=== PATIENT | male | born 1950 | race Caucasian/White ===

== ENCOUNTER 2016-04-18 15:45 | Inpatient (IN) | payer MEDICARE ==
[~2016-04-18] VITALS: Ht 182.9 cm; Wt 118.1 kg
[2016-04-18 15:51] VITALS: BP 146/67; PULSE 153; RESP 20; O2SAT 94
--- NOTE | 2016-04-18 16:00 | ED.REPORT ---
HPI-Chest Pain 40 and Over Date of Service Apr 18, 2016 ED Provider: Castro Morales MD Pt is a 65 y/o male w/ a hx of CAD s/p CABG x4 18 years ago, hyperlipidemia, presenting to the ED c/o CP with radiation to the right shoulder and neck onset 04:30 this morning after waking up. He also c/o rapid heart palpitations starting at this same time. He states he has a history of abnormal heart rhythm but his tooth cutter "doesn't seem to think it is a problem". He went into and was emergency sent here. Pt denies any history of a-fib/flutter or SVT. His pain is not worse with exertion. He c/o associated sharp pleuritic right upper chest pain. Pt denies any recent surgeries, long flights, long periods of immobilization. The only medication he takes is for hyperlipidemia. Pt denies SOB, confusion, nausea, vomiting, diaphoresis. Financial Analysis Consultant: Brian Ronquillo Nursing Notes Stated Complaint: CHEST PAIN Chief Complaint: Chest Pain Nursing Notes Reviewed: Yes Allergies: Coded Allergies: amoxicillin (Verified Allergy, Severe, Rash,Itching,, 04/18/16) naproxen (Verified Allergy, Severe, Rash,Itching,, 04/18/16) sulfamethoxazole (Verified Allergy, Severe, Rash,Itching,, 04/18/16) trimethoprim (Verified Allergy, Severe, Rash,Itching,, 04/18/16) Scheduled Aspirin Chew (Aspirin Chew) 81 Mg Chew 81 MG PO DAILY Atorvastatin Calcium (Atorvastatin Calcium) 40 Mg Tablet 40 MG PO HS Esomeprazole Magnesium (Esomeprazole Magnesium) 20 Mg Capsule.dr 20 MG PO QAM Ezetimibe (Zetia) 10 Mg Tablet 10 MG PO HS Lisinopril (Lisinopril) 40 Mg Tablet 40 MG PO HS Magnesium Oxide (Magnesium) 400 Mg Tablet 400 MG PO DAILY Metoprolol Succinate ER (Metoprolol Succinate ER) 50 Mg Tab.er.24h 50 MG PO HS Scheduled PRN Nitroglycerin SL (Nitrostat) 0.4 Mg Tab.subl 0.4 MG SL Q5MIN PRN PRN For Chest Pain General Time Seen by MD: 15:58 Chief Complaint Chest pain Hx Obtained From: Patient, EMS Arrived By: Ambulance Sudden in Onset?: No Onset Occurred: 13 - 16 hours ago Symptom Duration: Since onset Location: : Chest right Quality: Painful Radiation: : Neck: Shoulder right Migration/Movement: Reports: None Severity: Current: Mild Severity: Maximum: Mild Similar Sx Previous: No Past Medical History Past Medical History CAD s/p CABG x4 Hyperlipidemia Past Surgical History CABG x4 age 47 Smoking History Unknown if Ever Smoker Ambulatory Status Independent Review of Systems Constitutional: Denies: Chills, Fever Respiratory: Denies: Non-productive cough, Shortness of breath Cardiovascular: Reports: Chest pain, Palpitations GI: Denies: Abdominal pain, Nausea, Vomiting Neurologic: Denies: Change LOC, Confusion, Headache Complete sys rev & neg: except as marked. Physical Exam Initial Vital Signs Vital Signs (First) Date Time Temp Pulse Resp B/P Pulse Ox O2 Delivery O2 Flow Rate FiO2 04/18/16 15:51 36.9 153 20 146/67 94 Room Air Initial VS: Reviewed, Vital signs abnormal Head / Eyes: Atraumatic, Normocephalic, PERRL Neck: Supple, Full range of motion Extremities: Vascular intact, Neuro intact, No swelling, No tenderness Skin: Warm, Dry, No cyanosis Psychiatric: Mood/affect normal, Behavior normal, Normal thought content General/Constitutional: Awake, Alert, No acute distress, Well appearing, Cooperative, Not toxic appearing Respiratory / Chest: Atraumatic, Breath sounds NL, Breath sounds = bilat, No respiratory distress, No rales, No rhonchi, No wheezing, No retractions, No stridor, No chest tenderness, No chest wall deformity, No crepitus Well healed sternotomy scar Cardiovascular: Regular rhythm, Heart sounds NL, No gallop, No murmurs, No rubs , Cap refill not delayed, Peripheral circulation NL Heart Rate / Rhythm: Positive: Tachycardia Abdomen: Atraumatic, Soft, Non-tender, No guarding, No rebound, No distention Neurologic: Oriented X3, Speech NL, No motor deficits, No sensory deficits ENT: Atraumatic, Airway patent Mouth: Positive: Mucous membranes dry Interpretation & Diagnostics Lab Results Interpretation Result Diagram: 04/18/16 1602 04/18/16 1602 Test 04/18/16 16:02 White Blood Count 16.3th/mm3 (3.8-10.1) Red Blood Count 5.33mil/mm3 (4.40-5.80) Hemoglobin 17.1g/dL (13.8-17.2) Hematocrit 50.6% (41.0-50.0) Mean Corpuscular Volume 94.9fL (81-100) Mean Corpuscular Hemoglobin 32.1pg (27.0-35.0) Mean Corpuscular Hemoglobin Concent 33.8% (32.0-37.0) Red Cell Distribution Width 12.9% (12.3-15.4) Platelet Count 179bil/L (150-400) Neutrophils (%) (Auto) 72.2% (40-74) Lymphocytes (%) (Auto) 16.6% (14-46) Monocytes (%) (Auto) 9.3% (4-12) Eosinophils (%) (Auto) 1.4% (0-5) Basophils (%) (Auto) 0.2% (0-3) Prothrombin Time 10.0sec (8.1-12.5) Prothromb Time International Ratio 0.94ratio Activated Partial Thromboplast Time 26.2sec (22.8-33.0) D-Dimer < 0.50mg/L FEU (<0.50) Sodium Level 139mEq/L (134-144) Potassium Level 4.4mEq/L (3.5-5.2) Chloride Level 100mEq/L (97-108) Carbon Dioxide Level 22mmol/L (18-29) Blood Urea Nitrogen 20mg/dL (8-27) Creatinine 0.87mg/dL (0.76-1.27) Estimat Glomerular Filtration Rate 93mL/min (>59) Glucose Level 196mg/dL (60-99) Calcium Level 9.4mg/dL (8.5-10.1) Magnesium Level 1.9mg/dL (1.6-2.6) Total Bilirubin 0.8mg/dL (0.0-1.2) Aspartate Amino Transf (AST/SGOT) 47U/L (0-50) Alanine Aminotransferase (ALT/SGPT) 62U/L (0-44) Alkaline Phosphatase 84U/L (25-160) Total Protein 7.0g/dL (6.4-8.4) Albumin 4.4g/dL (3.4-5.0) Procalcitonin 0.08ng/mL (0.00-0.08) Thyroid Stimulating Hormone (TSH) 4.680uIU/mL (0.450-4.500) Free Thyroxine 0.98ng/dL (0.82-1.77) ECG Interpretation ECG Interpretation: Sinus tachycardia vs 2:1 atrial flutter rate 154 Normal axis, normal intervals Borderline ST depression leads V2-V3 No acute T wave abnromalities Compared to EKG earlier today at Urgent Care, there are no acute changes present Time: 16:19 Interpreted by: ED physician Normal ECG Interpretation: No acute ischemic changes ECG Interpretation: Cardioverted back to sinus tachy rate 120 with ventricular bigeminy Remains with borderline lateral ST depression Time: 17:17 Interpreted by: ED physician X-Ray Chest Interpretation Chest Xray Interpretation: IMPRESSION: No acute process. Dictated by: Gabriela Alva M.D. on 04/18/2016 at 16:28 Approved by: Gabriela Alva M.D. on 04/18/2016 at 16:28 View: Portable, 1 view Interpretation / Wet Read by: Interpret - Radiologist Procedures Electrical Cardioversion Time: 17:00 Procedure Performed by: ED physician Indication: Atrial flutter Consent / Setup / Site Prep: Informed consent provided, Consent from patient , Time-out performed, Placed on oxygen, Placed on pulse oximeter, Place on diagnostic cardiac sonographer, Hand hygiene observed, Stand sterile technique Procedural Sedation/Analgesia: Sedation: Etomidate (10 mg) Joules: 150 Procedure Successful: Yes Post-Procedure Rhythm: Sinus tachycardia (with bigeminy) Post-Procedure / Complications: No complications, Condition improved, Tolerated procedure well, Patient stable Proced Mod Sedation/Analgesia Time: 17:00 Procedure Performed by: ED physician Sedation Time: 10 - 15 min Consent / Setup: Informed consent provided, Consent from patient, Time-out performed, Hand hygiene observed, Stand sterile technique, Position supine Indication: Other (Cardioversion) Preparation: laboratory monitor applied, Pulse oximeter applied, Constant attendance, IV access established, Eval last meal time, Supplemental oxygen, Procedure explained, Suction available, End tidal CO2 mon applied VS Prior to Procedure: O2 saturation normal, Blood pressure normal, Respiratory rate normal Mallampati: Class & Anatomy: 2 top tonsil/uvula/palate Airway Exam: Normal facial anatomy, Normal neck anatomy, Normal anatomy CVS/Resp Exam: Normal breath sounds, Normal heart sounds Neuro Exam: Alert, No acute distress Sedation: Sedation: Etomidate (10 mg) ASA Classification: 2 mild systemic disease Response During Procedure: Handled secretions adeq, Maintained airway well, Oxygenation stable, Sedation appropriate, Vital signs stable Complications During/After: None Reversal: None required Mental Status After Procedure: Alert, Oriented X3, At patient's baseline Post-Procedure: Pt rtn pre-proc baseline Attestation: I performed procedure, I performed sedation Re-Eval/Medical Decision Med Decision/Clinical Course Pt is a 65 y/o male w/ a hx of CAD s/p CABG x4 18 years ago, hyperlipidemia, presenting to the ED c/o CP with radiation to the right shoulder and neck onset 04:30 this morning after waking up. He also c/o rapid heart palpitations starting at this same time. Upon arrival patient tachycardic with a heart rate of 153 though otherwise hemodynamically stable. Aspirin given prior to arrival. EKG was obtained and interpreted by myself as documented above. Consistent with 2-1 atrial flutter pattern. EKG reviewed with cardiology and they agreed. Given active chest pain likely reflective of demand ischemia in setting of rapid heart rate they recommended we proceed with electrical cardioversion given onset of symptoms less than 12 hours. Consent was obtained and the patient underwent procedural sedation using 10 mg of etomidate as documented above. He underwent synchronized cardioversion at 150 J and thereafter was found to be in sinus rhythm with occasional beats of bigeminy. After conversion to sinus rhythm patient reported complete resolution of his chest pain. He remained hemodynamically stable. Labs notable as below: CBC notable leukocytosis of 16 otherwise unremarkable CMP: unremarkable Troponin: negative D-dimer: negative Aspects of the patient's presentation were somewhat suggestive of pulmonary embolism though overall clinical picture seems less consistent with this etiology. D-dimer was negative and reassuring against PE. After discussing with cardiology we will admit the patient for further rhythm management as well as ACS rule out given the presence of chest pain in setting of multiple cardiac risk factors. Patient was discussed with the admitting team and transferred in stable condition to the CCU in consultation with cardiology. Time of Eval: 17:56 Patient Status: Condition improved, Moderate relief, Pain improved Re-Evaluation/Progress Note: Pt rechecked. Pt informed of need for admission. Pt understands and agrees with plan for admission. All questions addressed. Consultation #1: Referral / Consult Name: Juan Seymour MD Consulted With: Cardiology Call Returned at: 16:25 Head Of Global Strategic Partnerships: Agrees with eval, Agrees with plan Note: Believes the rhythm is atrial flutter and recommends cardioversion Consultation #2: Referral / Consult Name: Pastor Walters MD Consulted With: Hospitalist Call Returned at: 16:59 Head Of Global Strategic Partnerships: Will see patient, Agrees with eval, Agrees with plan, Accepts admit Counseled Regarding: Diagnosis, Lab results Discharge & Departure Primary Impression: Chest pain Chest pain type: unspecified Qualified Code: R07.9 - Chest pain, unspecified Additional Impressions: Atrial flutter with rapid ventricular response Demand ischemia of myocardium Leukocytosis Leukocytosis type: unspecified Qualified Code: D72.829 - Elevated white blood cell count, unspecified History of coronary artery disease History of coronary artery bypass graft x 2 Disposition: ADMITTED TO HOSPITAL Discharge Condition All VS Reviewed: Yes Condition: Stable Crit Care Except Billable Proc Time Spent: 135-164 minutes Services Performed: Patient management by me, Time spent at bedside, Reviewing test results, Reviewing imaging, Discussing patient care, Documentation in record, Time with fam/surrogate Scribe Attestation Portions of this note were transcribed by Prashant Hugo. I, Dr. Morales personally performed the history, physical exam and medical decision-making; I reviewed and confirmed the accuracy of the information in the transcribed note. Signed by Maria Luisa Grossman, 04/18/16 - 1700 Castro Morales MD Apr 18, 2016 16:00 PRASHANT HUGO Apr 18, 2016 16:10
[2016-04-18 16:06] LABS: BASOPHILS % (AUTO) 0.2 % (0-3); EOSINOPHILS % (AUTO) 1.4 % (0-5); MONOCYTES % (AUTO) 9.3 % (4-12); Mean Corpuscular Hemoglobin 32.1 pg (27.0-35.0); Mean Corpuscular Volume 94.9 fL (81-100); NEUTROPHILS % (AUTO) 72.2 % (40-74); Platelet Count 179 bil/L (150-400)
[2016-04-18 16:15] VITALS: BP 118/69; PULSE 155; RESP 22; O2SAT 95
[2016-04-18] MEDS ORDERED: Adenosine 3 mg/mL 2 mL Inj IVPUSH ONE ×2 (16:15)
[2016-04-18 16:27] LABS: INR 0.94 ratio
--- NOTE | 2016-04-18 16:29 | DRSVH ---
PROCEDURE: X-RAY CHEST ONE VIEW, PORTABLE ([id number]) INDICATIONS: CHEST PAIN TECHNIQUE: One view of the chest was acquired. COMPARISON: None. FINDINGS: Surgical changes and devices: Median sternotomy. Lungs and pleura: No pleural effusions or pneumothorax. Lungs are clear. Mediastinum: Mediastinal contours appear normal. Heart size is normal. Bones and chest wall: No suspicious bony lesions. Overlying soft tissues appear unremarkable. IMPRESSION: No acute process. Dictated by: Gabriela Alva M.D. on 04/18/2016 at 16:28 Approved by: Gabriela Alva M.D. on 04/18/2016 at 16:28
[2016-04-18 16:36] LABS: D-Dimer < 0.50 mg/L FEU (<0.50)
[2016-04-18 16:39] LABS: TROPONIN T < 0.010 ug/L (0.0-0.011)
[2016-04-18 16:41] LABS: Magnesium 1.9 mg/dL (1.6-2.6)
[2016-04-18] MEDS ORDERED: Ondansetron 2 mg/mL 2 mL Inj IVPUSH PRN (16:45)
[2016-04-18] MEDS ORDERED: Alum-Mag Hydrox-Simeth 30 mL Suspension PO PRN (16:45)
[2016-04-18] MEDS ORDERED: Etomidate 2 mg/mL 20 mL Inj IV ONE (16:50)
[2016-04-18 17:48] VITALS: BP 115/68; PULSE 115
[2016-04-18] MEDS ORDERED: Senna-Docusate 8.6-50 mg Tablet PO PRN (17:50)
[2016-04-18] MEDS ORDERED: Polyethylene Glycol (PEG) 17 Gm Powder PO PRN (17:50)
[2016-04-18] MEDS ORDERED: Atropine 1 mg/10 mL (Code) Syringe IVPUSH PRN (17:50)
[2016-04-18] MEDS ORDERED: MeTOProlol 1 mg/mL 5 mL Inj IVPUSH ONE (17:55)
[2016-04-18] MEDS ORDERED: LISI40TA PO (17:57)
[2016-04-18] MEDS ORDERED: EZET10TA PO (17:57)
[2016-04-18] MEDS ORDERED: NITR0.4T SL (17:57)
[2016-04-18] MEDS ORDERED: ATOR40TA69 PO (17:57)
[2016-04-18] MEDS ORDERED: METO-272 PO (17:57)
[2016-04-18] MEDS ORDERED: Glucose 40% Oral Gel 15 Gm Tube PO PRN (18:00)
--- NOTE | 2016-04-18 18:09 | PCM.HPMED ---
Subjective Date of Service Apr 18, 2016 Primary Provider: Admitting Physician: Primary Care Physician: Jacob Attending Physician: Chief Complaint: CP History of Present Illness: Mr Rogers, who goes by Stewart, is a 65 yo M with history of CAD s/p distant CABGx4 , Hypertension, and Hyperlipidemia who presented to the ED for complaints of right sided chest pain that radiates to his right neck. Stewart reports that the pain woke him up this morning around 0430. The pain felt like a muscle tore and was constant throughout the day despite taking a pain pill and did not change with exertion. He also noted some palpitations and pain with deep inhalation, but denies any N/V, Diaphoresis, rigors, SOB, LYON, vision changes, or sense of impending doom. He reports he was at baseline prior to today, and had not had any CP since his CABG 18 years ago. He was worried and went to this morning and was subsequently transferred to the ED for further evaluation. He reports he has been dealing with URI symptoms this past month, but has not had any fevers, leg swelling, or MEADOWS. Denies any sick contacts, recent surgeries, or travels. In the ED, he was noted be tachycardic in the 150s with an EKG that was read as Atrial Flutter with no acute change ST changes. Troponin neg x1, and CXR was benign. He was also noted to have a WBC of 16.3, although diff of 72.2% neutrophils. The ED physician did cardiovert the patient and his rhythm converted to a slower rhythm with rate in the 110s and appears to be Trigeminy. Patient reports that his CP improved after the cardioversion. His Back Tender Paper Machine is Jesus Dawkins at [facility]. He just recently moved to the [facility]. He states he has been compliant on his medications but his diet could be better. His past away in December, so he has just been living alone. He reports he only drinks 1 regular sized cocktail each night. He used to smoke 1 ppd x about 25 years. He quit after his CABG. Review of Systems: 12 Point ROS negative except as stated in HPI Allergies Coded Allergies: amoxicillin (Verified Allergy, Severe, Rash,Itching,, 04/18/16) naproxen (Verified Allergy, Severe, Rash,Itching,, 04/18/16) sulfamethoxazole (Verified Allergy, Severe, Rash,Itching,, 04/18/16) trimethoprim (Verified Allergy, Severe, Rash,Itching,, 04/18/16) PMH CAD s/p CABG x4 Hyperlipidemia Hypertension Pre-diabetes Surgical History CABG Family History Reports Father of OR at 72 Mother had CVA Social History Hx Alcohol Use: Yes Hx Substance Use: No Hx Tobacco Use: Yes Smoking Status: Former Smoker Living Arrangement: Alone Additional Information He just recently moved to the [facility]. He states he has been compliant on his medications but his diet could be better. His past away in December, so he has just been living alone. He reports he only drinks 1 regular sized cocktail each night. He used to smoke 1 ppd x about 25 years. He quit after his CABG. Exam Vital Signs Vital Sign - Last Date Time Temp Pulse Resp B/P Pulse Ox O2 Delivery O2 Flow Rate FiO2 04/18/16 17:48 115 115/68 04/18/16 16:15 22 95 Room Air 04/18/16 15:51 36.9 Exam Gen: Obese white male in NAD, A&Ox3, Cooperative HEENT: NC/AT, PERRLA, EOMI, Oropharynx non-erythematous, mucosa pink but mildly dry Neck: Soft, Trachea Midline, no lymphadenopathy appreciated CV: Tachycardic with frequent PVCs, peripheral pulses bounding but equal, No JVD noted Resp: CTAB, normal resp effort Abd: Soft, Obese, mildly distended, mildly tender to palpation in the lower quadrants, no guarding or rebound, no masses palpated. Normoactive BS present MSK: MS grossly intact and equal, no focal weakness Neuro: CN2-12 grossly intact, DTRs +2 and equal, Gait not tested, Skin: Warm, Dry, Intact, no Rashes noted Extremities: No clubbing, Cyanosis, or edema noted. Psych: Appropriate mood and affect, linear speech process. Lab and Diagnostics Result Diagram: 04/18/16 1602 04/18/16 1602 X-Rays, CTs and MRIs PROCEDURE: X-RAY CHEST ONE VIEW, PORTABLE ([id number]) IMPRESSION: No acute process. Assessment & Plan 65 yo M with history of CAD s/p distant CABGx4, Hypertension, and Hyperlipidemia who presents for right sided CP radiating to his right neck. Found to be in Atrial Flutter with rate of 150s in ED, then cardioverted and came down to rate of 110s with frequent Trigeminy vs Bigeminy. #Acute Chest Pain, POA Likely due to his Atrial Flutter, improved after Cardioversion, but still mildly persistent. Trops neg x1, EKG without obvious acute ST changes Dr. Juan Seymour, spiritual counselor is consulted on the patient. Will give 1 dose of Metoprolol for this afternoon, then hold BB and place on NPO status for anticipated ECHO and ETT tomorrow. Placed on Tele for CV monitoring. TSH/T4 pending IV NS 80mls/hr while NPO. #CAD s/p CABG, POA Lipid panel in the AM Continue Home medications when appropriate: Lisinopril and Metoprolol #Leukocytosis, acute, POA WBC of 16.3 on admit with normal diff. Patient afebrile and lung exam was benign , although patient reports having a URI recently. Possibly stress reaction, continue to monitor. Procalcitonin pending. #Hypertension, POA Continue Home medications when appropriate: Lisinopril and Metoprolol #Hyperlipidemia, POA Patient already on high intensity statin Continue Atorvastatin when appropriate #Pre-diabetes, POA Patient reports history of pre-diabetes Will check HgbA1c for evaluation Insulin Lispro Low Correctional Scale initiated #GERD, POA Secondary to report of hiatal hernia Maalox prn heartburn #BMI 34.0 Recommend plant health manager consult Tylenol PRN pain Restoril PRN insomnia Zofran PRN n/v Pain Evaluation: Adequate Pain Control VTE Prophylaxis: Sub-Q Heparin (Unfractionated) Resuscitation Status: CPR: Attempt Resuscitation Time spent 55 minutes Attending Statement I have seen and evaluated patient at bedside in addition to directly supervising care provided by resident physician. I agree with above documentation. In the setting of recent arrhythmia/Flutter, heperin drip was initiated over night to reduce risk for development of embolism during recovering period when hyperdynamic cardiac motion may still put pt at increased risk of carcinogenic thrombus formation. Maury Jack DO Apr 18, 2016 18:09 Milton Peña DO Apr 19, 2016 08:09
[2016-04-18 18:42] VITALS: BP 161/125; PULSE 108; RESP 18; O2SAT 93
--- NOTE | 2016-04-18 18:42 | NUR ---
arrived to unit patient arrived to floor. VS: BP 161/25, HR 108 with lots of PVCs per tele, Spo2 93% on RA. hitch technician at bedside doing med rec. Pt stated that he had no pain. Alert and oriented X3. Pt is NPO and voided X1.
[2016-04-18 18:48] VITALS: PULSE 109
[2016-04-18] MEDS ORDERED: MAGN400T39 PO (18:59)
[2016-04-18] MEDS ORDERED: ASPI81TA3 PO (18:59)
[2016-04-18] MEDS ORDERED: ESOM20CA39 PO (18:59)
[2016-04-18] MEDS ORDERED: Heparin 25K Unit/500mL 0.45 NS 25,000 UNIT in IV Premix 1 EACH IV SCH (19:25)
[2016-04-18] MEDS: 0.9% Sodium Chloride 1,000 ML IV SCH (20:16)
[2016-04-18] MEDS: Insulin LISPRO 300 Unit/3 mL Inj SUBQ SCH (22:00)
[2016-04-18] MEDS: Sodium Chloride LOK Flush 10 mL Syringe IVFLUSH SCH (23:54)
[2016-04-19 00:26] VITALS: BP 127/82; PULSE 94; RESP 18; O2SAT 96
[2016-04-19] MEDS ORDERED: Heparin 5,000 Unit/mL Inj SUBQ SCH (00:30)
[2016-04-19] MEDS ORDERED: Heparin 5,000 Unit/mL Inj IVPUSH ONE (02:30)
[2016-04-19] MEDS ORDERED: Heparin Protocol Boluses IVPUSH PRN (02:40)
[2016-04-19 05:43] VITALS: PULSE 86
--- NOTE | 2016-04-19 06:40 | NUR ---
Anxiety / Insomnia Not able to fall asleep and rated anxiety mild with 3/10 chest pain. Patient opted to try 0.5mg Ativan before Morphine and slept soundly the remainder of the night.
[2016-04-19 07:20] LABS: BASOPHILS % (AUTO) 0.4 % (0-3); EOSINOPHILS % (AUTO) 2.1 % (0-5); MONOCYTES % (AUTO) 11.9 % (4-12); Mean Corpuscular Hemoglobin 32.4 pg (27.0-35.0); Mean Corpuscular Volume 96.2 fL (81-100); NEUTROPHILS % (AUTO) 50.8 % (40-74); Platelet Count 125 bil/L (150-400)
[2016-04-19] MEDS: Sodium Chloride LOK Flush 10 mL Syringe IVFLUSH SCH (07:35)
[2016-04-19] MEDS: Insulin LISPRO 300 Unit/3 mL Inj SUBQ SCH ×2 (07:37→12:00)
[2016-04-19] MEDS: 0.9% Sodium Chloride 1,000 ML IV SCH (07:40)
[2016-04-19 07:46] LABS: Magnesium 2.1 mg/dL (1.6-2.6)
[2016-04-19 08:00] VITALS: PULSE 87
--- NOTE | 2016-04-19 08:40 | NUR ---
Stopped heparin drip 0840 PTT of 35.8 came in. Pt had 0900 stress test. RBVO from Dr Jack to saline lock patient for test. Stopped drip and did not bolus or adjust rate.
--- NOTE | 2016-04-19 09:00 | NUR ---
off unit pt off unit for stress test. stopped heparin drip and iv fluids per Dr Jack. pt left displaying no s/s of distress Addendum: 04/19/16 at 1146 by VAL NAVARRETE RN pt bact to unit.
--- NOTE | 2016-04-19 11:30 | NUR ---
re-started heparin drip Re-started heparin drip per Dr Jack orders at the same rate of 1200units/hr and set up the next 24hrs of PTTs.
--- NOTE | 2016-04-19 11:59 | DRSVH ---
PROCEDURE: 1 DAY TREADMILL STRESS TEST Rest and exercise myocardial perfusion SPECT with gated imaging and ejection fraction RADIOPHARMACEUTICAL: 10.6 mCi Tc-99m tetrafosmin IV at rest and 29.1 mCi Tc-99m tetrafosmin IV at pea k exercise. [id number] was performed. INDICATIONS: 65-year-old man with chest pain. Patient has coronary artery disease with history of co ronary artery bypass grafting. Evaluate myocardial ischemia. TECHNIQUE: Radiopharmaceutical was injected at peak stress test, and also at rest. SPECT images wer e obtained. SPECT myocardial perfusion images were displayed in short axis, horizontal long axis, an d vertical long axis views. Gated images were reviewed using Compario software. COMPARISON: , CR, XR CHEST 1VW (PORTABLE), 04/18/2016, 16:06. CARDIAC STRESS: A standard Rafael treadmill exercise tolerance test was performed by the patient under the supervision of an attending staff. The patient exercised for 3 minutes and 37 seconds; functional aerobic impai rment (ROLY) is +47 %. Hemodynamic data: There is normal blood pressure and heart rate response to exercise stress. Patien t achieved 97% of maximum predicted heart rate at peak exercise. Symptoms: Patient had moderate chest pressure (3/10) at peak exercise, which resolved spontaneously 2 minutes into recovery. EK-[address] depression in II, III, aVF, V5-V6 diagnostic EKG changes of ischemia; frequent PVCs. FINDINGS: Raw data: There is good myocardial labeling by radiotracer. No significant motion artifacts. Left ventricle function: Gated images demonstrate normal left ventricle wall thickening. There is mi ld global hypokinesia. Septal rocking cachectic related to CABG. No transient ischemic dilation. Th e left ventricle resting end-diastolic volume is mildly enlarged. Left ventricle stress ejection fra ction is 38%; normal values are above 45%. Myocardial perfusion: There is a small, mild, fixed perfusion defect in the left ventricular apex, w hich is most likely caused by apical thinning. There is no reversible perfusion defect to suggest anu cardial ischemia. IMPRESSION: 1. Probably normal myocardial perfusion images. A small, mild, fixed perfusion defect in the left shahida tricular apex is most likely caused by apical thinning. There is no reversible perfusion defect to simpson ggest myocardial ischemia. 2. Mild left ventricular enlargement with mild global hypokinesia. Decreased systolic function (LVEF 38%). 3. Severely reduced exercise capacity. The patient expressed chest pain at peak exercise, which was r esolved 2 minutes into recovery. There were diagnostic EKG changes suggesting myocardial ischemia. PQRS ATTESTATIONS: Measure 322 - Is this imaging test primarily performed on a low-risk surgery patient for preoperative evaluation within 30 days preceding their low-risk non-cardiac surgery? Low-risk surgery is defined as cardiac or myocardial infarction less than 1%, including (but not limited to) endoscopic pr ocedures, superficial procedures, cataract surgery, and excisional breast surgery: Answer: No Measure 323 - Is this imaging test performed primarily for the monitoring of an asymptomatic patient who had percutaneous coronary intervention on the visit date or within 2 years of the visit date? An swer: No Measure 324 - Is this imaging test performed primarily for the initial detection and risk assessment on an asymptomatic, low coronary heart disease patient? Low CHD risk definition = clinicians should consider the maximum number of available patient factors used to estimate risk based on [place] (A TP III criteria), typically age, gender, diabetes, smoking status, and use of blood pressure medicati on, and integrate age appropriate estimates for missing elements, such as LDL or standard blood press ure. Answer: No Dictated by: Billy Morel M.D. on 04/19/2016 at 11:23 Approved by: Billy Morel M.D. on 04/19/2016 at 11:57
--- NOTE | 2016-04-19 13:11 | DRSVH ---
[facility] [address] [place] [address] Echocardiogram Report Name: KELIN KENNYudy Date : 04/19/2016 Height: 72 in Hospital Exam Location: [facility] Weight: 260 lb Gender: Male BSA: 2.4 m2 : 1950 Age: 65 yrs BP: 127/82 m mHg Reason For Study: Chest pain History: CABG Ordering Physician: HOSPITALIST [facility] Performed By: Marilin Swan Referring Physician: Dr. Jesus Dawkins Interpretation Summary Left ventricular systolic function is low normal. There is basal inferior wall severe hypokinesis. The ejection fraction is estimated to be 50-55%. Assessment of diastolic parameters indicates normal left ventricular diastolic function and normal filling pressures. No other echocardiographic abnormalities seen. Procedure: A two-dimensional transthoracic echocardiogram with color flow and Doppler was performed. The study quality was technically adequate. There is no prior echocardiogram noted for this patient. A contrast injection of Definity was performed to improve assessment of LV function. The patient did well with Definity. The patient had occasional PVCs during the exam. The patient was in normal sinus rhythm during the exam. Left Ventricle: The left ventricle is borderline dilated. Left ventricular wall thickness is at the upper limits of normal. The ejection fraction is estimated to be 50-55%. Left ventricular systolic function is low normal. There is basal inferior wall severe hypokinesis. Assessment of diastolic parameters indicates normal left ventricular diastolic function and normal filling pressures. Right Ventricle: The right ventricle is normal in size and function. Atria: The left atrium is mildly dilated. Right atrial size is normal. There is no Doppler evidence for an interatrial shunt. Mitral Valve: The mitral valve is normal in structure and function. There is trace mitral regurgitation. Aortic Valve: The aortic valve is trileaflet. The aortic valve opens well. The aortic valve is slightly calcified. There is trace aortic regurgitation. Tricuspid Valve: The tricuspid valve is not well visualized, but is grossly normal. Pulmonary artery pressures cannot be estimated because of the lack of a measurable TR jet velocity. Pulmonic Valve: The pulmonic valve is not well visualized. There is trace pulmonic regurgitation. Great Vessels: The aortic root is normal size. The ascending aorta is normal in size. The aortic arch is normal in size. The inferior vena cava was not visualized. Pericardium/ Pleura There is no pericardial effusion. MMode/2D Measurements & Calculations LVIDd: 6.2 cm LA dimension: 4.1 cm RA long axis LVOT diam: 2.7 cm LVIDs: 4.8 cm AoV Opening FS: 21.4 % LA A2 area: 24.6 cm RA area EPSS: 0.82 cm LA A4 area: 30.1 cm Ao root diam IVSd: 1.2 cm LA length (vol) : 18.1 cm LVPWd: 1.0 cm RA vol asc Aorta Diam LA vol: 98.4 ml : 48.6 ml LA vol index RA Ao Arch Diam (Prox : 20.4 mm2 Trans): 2.8 cm : 41.3 ml/m2 LV shelley. diameter/BSA LV sys. diameter/BSA RVD1 (basal) TAPSE: 2.3 cm (cm/m^2): 2.6 (cm/m^2): 2.0 Doppler Measurements & Calculations Ao V2 max MV E max denilson MV E/A: 1.1 PA V2 max : 147.5 cm/sec : 84.5 cm/sec Med Peak E' Denilson : 76.7 cm/sec Ao max PG MV A max denilson PA mean PG : 8.7 mmHg : 76.9 cm/sec E/E' med: 12.8 Ao mean PG MV P1/2t: 48.2 msec Lat Peak E' Denilson PA Accel Time : 0.11 sec LVOT Max Denilson E/E' lat: 7.7 : 72.1 cm/sec E/e' average: 10.2 Pulm A Revs Dur JACKIE(I,D): 2.8 cm sev ratio MV A dur: 0.09 sec MV dec time MV P1/2t max denilson Ao V2 mean LV V1 max PG : 0.16 sec : 109.6 cm/sec MVA(P1/2t): 4.6 cm2 Ao V2 VTI: 30.0 cm LV V1 VTI JACKIE(V,D): 2.7 cm2 : 15.2 cm PA V2 mean JACKIE indexed to BSA Pulm A Revs Dur - MV A : 55.1 cm/sec (cm^2/m^2): 1.2 Dur: 0.03 msec Reading Physician:01:10 PM
[2016-04-19 14:05] VITALS: BP 158/98; PULSE 64; RESP 19; O2SAT 91
--- NOTE | 2016-04-19 15:05 | PCM.DIMED ---
Maury Jack DO 04/19/16 1505: Discharge Instructions Date of Service Apr 19, 2016 Dates of Hospitalization Apr 18, 2016 at 18:15 Discharge Diagnosis Discharge Diagnosis #Acute Chest Pain Secondary to Atrial Flutter #CAD s/p CABG #Leukocytosis, resolved #Hypertension #Hyperlipidemia #Diabetes Mellitus Type 2 #GERD #BMI 34.0 Medication Instructions Please take your medications as instructed. We will start you on a blood thinner called Xarelto. Please take that daily as instructed. Diet Heart Healthy Activity Limited until seen by PCP (Take it easy) Call your provider Shortness of breath, Chest pain, Vomitting, Weakness (unilateral) Patient Instructions Please take your medications as instructed. Please follow up with Dr. Cooper [facility], 2016 at 10:00 AM. Please arrive 10 minutes early to fill out paperwork. Address: [address] [place] [id number] Please follow up with your Exhaust Equipment Operator within 1-2 weeks also. Follow-up Provider: Maury Jack DO Follow-up with PCP in: 2 weeks Milton Peña DO 04/20/16 1535: Discharge Instructions Attending's Statement Read and agree Maury Jack DO Apr 19, 2016 15:05 Milton Peña DO Apr 20, 2016 15:35
[2016-04-19] MEDS ORDERED: METO-272 PO (15:08)
[2016-04-19] MEDS ORDERED: RIVA20TA PO (15:08)
[2016-04-19] MEDS ORDERED: MeTOProlol XL 50 mg ER24 Tablet PO ONE (15:10)
--- NOTE | 2016-04-19 15:23 | CONS ---
[address] [address] CONSULTATION REPORT PATIENT: KELIN KENNY : 1950 MR#: [id number] ADMIT: 04/18/2016 JOB ID: [id number] DATE OF SERVICE: 04/19/2016 CARDIOLOGY CONSULTATION: I have been asked by the hospitalist to see the patient who presented early yesterday morning with atrial flutter and right precordial and right shoulder chest discomfort in the setting of known ischemic heart disease. The patient moved to this area in November to be closer to family since his earlier last year from cancer. He has a history of coronary artery disease dating back 18 years ago when he presented presumably with an acute coronary syndrome, possible inferior myocardial infarction and ultimately ended up with coronary bypass grafting. He has been followed on a regular basis by Dr. Jesus Dawkins at [facility]. He states that he undergoes a fairly complete yearly or every other year evaluation including coronary angiography within the recent couple of years which demonstrated no significant problems and he believes that he had a stress test last year which was unremarkable. He admits to symptoms of mild chronic exertional dyspnea when walking the dog but does not have a history of clear-cut exertional anginal chest discomfort. At about 2 or 3 in the morning on April 18, he woke up with symptoms of right precordial and right shoulder and neck discomfort. His emergency department physician note suggested that he felt rapid heart palpitations at that time, but the patient states that he was unaware of his rapid heart rate on my examination today. In any event, because of his discomfort and history of bypass surgery, he was given sedation and underwent a cardioversion in the emergency department. He states that he does not have a known past history of known atrial fibrillation or flutter though he has had an irregular heart beat for a long time. Following admission, this gentleman continued to have a moderate sinus bradycardia and moderate hypertension and frequent PVCs which I suspect are chronic. Today he underwent testing with an echocardiogram and a nuclear cardiac stress study. His echocardiogram shows an ejection fraction in the range of 50%-55% with a focal area of inferior and inferior septal akinesis likely related to a remote infarction but no other regional wall motion abnormalities are seen and there is no significant valvular heart disease. No significant tricuspid regurgitation noted with which to estimate pulmonary artery pressures but the right ventricle looked normal. This gentleman underwent a nuclear cardiac stress study. His exercise capacity was markedly reduced. He had a rapid heart rate response to exercise. His blood pressure increased by about 20 points but he had to stop at about 3.5 minutes due to tachycardia, ST-segment depression and symptoms of substernal precordial chest tightness more in the epigastric region and different than his right shoulder discomfort that he presented with with atrial flutter. EKG changes gradually improved. His baseline EKG shows some mild nonspecific ST-segment abnormalities and borderline ventricular hypertrophy, which is also identified on his echocardiogram and, therefore, the EKG changes are not likely to be as specific. His nuclear stress study suggests a basal inferior hypoperfusion consistent with a previous infarction but no area of reversible perfusion abnormality that would suggest ischemia and his serial cardiac enzymes have been normal. He is currently with family and resting comfortably without any symptoms. REVIEW OF SYMPTOMS: Is notable for frequent nocturia every two hours or so. He does not describe a history of significant daytime fatigue or hypersomnolence although he has been tested in the past for sleep apnea, and was given a CPAP machine which he has not used for a number of years because he would get tangled up in the hose. He denies a history of stroke or stroke-like symptoms and has no history of claudication. He denies any bleeding issues or problems. His review of systems is otherwise unremarkable. HOME MEDICATIONS: Include: 1. Aspirin 81 mg a day. 2. Atorvastatin 40 mg a day plus Zetia 10 mg a day. 3. He takes lisinopril 40 mg a day. 4. Metoprolol succinate 50 mg daily in addition to magnesium and a proton pump inhibitor for reflux. ALLERGIES: Include AMOXICILLIN, NAPROXEN, SULFAMETHOXAZOLE and TRIMETHOPRIM. SOCIAL HISTORY: As noted above. The patient is a nonsmoker. He does not eat very well and has not been exercising much with his recent move and with the passing of his . PHYSICAL EXAMINATION: Shows a pleasant 65-year-old gentleman who is 6 feet tall and weighs 260 pounds, body mass index of 35.3. Heart rates have generally been ranging in the 80s since late last night and early this morning. Blood pressures have been variable. Blood pressure this afternoon is up some at 158/98. He has been afebrile with normal room air O2 saturation. Clinical examination is pleasant, alert, oriented, obese male resting comfortably in bed. HEENT examination is unremarkable. Jugular venous pressure is noted to be elevated at the mid neck at about 45 degrees. No carotid bruits identified. Lung agarwal are clear. Cardiac auscultation is notable for regular rate and rhythm with occasional to frequent PVCs noted. He has a somewhat widely split second heart sound which is physiologic. I do not hear a ventricular gallop nor do I hear a murmur. Abdomen is morbidly obese without any obvious findings. Distal extremities are warm and well perfused with normal pedal pulses. No significant lower extremity edema. No musculoskeletal or neurologic findings identified. LABORATORY: Is notable for a hemoglobin A1c of 6.9 and blood sugar of 145. His creatinine and electrolytes are normal. Total bilirubin slightly elevated at 1.3 with an ALT slightly elevated at 45. His troponin is negative on several blood draws. His triglyceride level is elevated at 199. Total cholesterol 138, LDL cholesterol 55, HDL cholesterol 43. TSH is borderline elevated at 4.7 with a normal free T4 of 0.98. ECGs are reviewed and demonstrate somewhat atypical atrial flutter on presentation with a 2:1 ventricular response and a heart rate of 150 beats per minute. Post cardioversion he is in normal sinus rhythm with a sinus tachycardia, ventricular trigeminy and evidence of prominent atrial enlargement. Chest x-ray shows evidence of previous surgery. No obvious infiltrates or other significant findings. His echocardiogram and nuclear cardiac stress study are discussed above. IMPRESSION: 1. Atrial flutter with associated right arm and shoulder discomfort, resolved following cardioversion. The onset in the middle of the night is consistent with possible trigger with obstructive sleep apnea, and the patient has a known history of obstructive sleep apnea, and this should be treated. This gentleman has no contraindications to anticoagulation. I have recommended that he get started up on a new anticoagulant for its immediate affect and absent the need for titration. His daughter who is with him in the room today is a pharmacist and will help with getting that started. In addition, I am going to suggest that we increase his metoprolol from 50-100 mg a day given his borderline hypertension and tachycardia until he sees Dr. Dawkins hopefully in the next couple of weeks. 2. Coronary artery disease: This gentleman had symptoms suspicious of angina with fairly significant EKG changes but no demonstrable ischemia on his nuclear cardiac stress study. I suspect that he may have low risk or subtle ischemia and part of his exertional dyspnea as an outpatient may be related. He has not been very active so it is possible that if he were more active as an outpatient he would be more aware of exertional angina-like chest discomfort. Metoprolol should help that. He has developed headaches in the past with nitrates and so I am not going to get him started up on long-acting nitroglycerin but I do not find any compelling reason at this point in time to proceed with urgent coronary angiography and I will want him followed up within the next couple weeks by Dr. Dawkins who can determine the need for additional followup of his ischemic heart disease. 3. Hyperlipidemia. Well controlled with atorvastatin and Zetia. 4. Untreated obstructive sleep apnea. 5. Non insulin-dependent diabetes. This gentleman's hemoglobin A1c and blood sugar are significant along with his hypertriglyceridemia and suggest probable benefit might be obtained with more aggressive weight loss, dieting and perhaps treatment for his mild diabetes. 6. Obesity. 7. Prostatism: This patient has frequent nocturia, possibly prostate related and that probably would benefit from further evaluation and treatment as well. I appreciate the opportunity of seeing the patient in consultation. I think he can be discharged home this evening. I have spoken with the hospitalist as well as the patient and the family regarding my recommendations for an increased dose of metoprolol as well as initiation of oral anticoagulation. He needs to establish hopefully in the near future with a primary care physician to followup on his diabetes, obstructive sleep apnea and prostate symptoms and followup in the near future as well with his primary conference services director, Dr. Jesus Dawkins, regarding his atrial flutter and chronic ischemic heart disease.
--- NOTE | 2016-04-19 15:45 | NUR ---
Discharge went over discharge instructions and medications with patient who verbally acknowledged understanding. Removed intact IV. Pt left on foot with to car. No s/s of distress.
--- NOTE | 2016-04-19 19:25 | PCM.DC.MED ---
Discharge Summary Date of Service Apr 19, 2016 Dates of Hospitalization Date of Hospital Admission Apr 18, 2016 at 18:15 Date of Discharge: Apr 19, 2016 Providers: Admitting Physician: Pastor Walters MD Primary Care Physician: Nopcp Attending Physician: Pastor Walters MD Diagnosis at Time of Discharge Diagnosis at Time of Discharge #Acute Chest Pain Secondary to Atrial Flutter #CAD s/p CABG #Leukocytosis, resolved #Hypertension #Hyperlipidemia #Diabetes Mellitus Type 2 #GERD #BMI 34.0 Procedures XRay, CTs & MRIs PROCEDURE: X-RAY CHEST ONE VIEW, PORTABLE ([id number]) IMPRESSION: No acute process. IMPRESSION: 1. Probably normal myocardial perfusion images. A small, mild, fixed perfusion defect in the left ventricular apex is most likely caused by apical thinning. There is no reversible perfusion defect to suggest myocardial ischemia. 2. Mild left ventricular enlargement with mild global hypokinesia. Decreased systolic function (LVEF 38%). 3. Severely reduced exercise capacity. The patient expressed chest pain at peak exercise, which was resolved 2 minutes into recovery. There were diagnostic EKG changes suggesting myocardial ischemia. Cardiac Echo Impression Interpretation Summary Left ventricular systolic function is low normal. There is basal inferior wall severe hypokinesis. The ejection fraction is estimated to be 50-55%. Assessment of diastolic parameters indicates normal left ventricular diastolic function and normal filling pressures. No other echocardiographic abnormalities seen. Brief History Mr Rogers, who goes by Stewart, is a 65 yo M with history of CAD s/p distant CABGx4 , Hypertension, and Hyperlipidemia who presented to the ED for complaints of right sided chest pain that radiates to his right neck. Stewart reports that the pain woke him up this morning around 0430. The pain felt like a muscle tore and was constant throughout the day despite taking a pain pill and did not change with exertion. He also noted some palpitations and pain with deep inhalation, but denies any N/V, Diaphoresis, rigors, SOB, LYON, vision changes, or sense of impending doom. He reports he was at baseline prior to today, and had not had any CP since his CABG 18 years ago. He was worried and went to this morning and was subsequently transferred to the ED for further evaluation. He reports he has been dealing with URI symptoms this past month, but has not had any fevers, leg swelling, or MEADOWS. Denies any sick contacts, recent surgeries, or travels. In the ED, he was noted be tachycardic in the 150s with an EKG that was read as Atrial Flutter with no acute change ST changes. Troponin neg x1, and CXR was benign. He was also noted to have a WBC of 16.3, although diff of 72.2% neutrophils. The ED physician did cardiovert the patient and his rhythm converted to a slower rhythm with rate in the 110s and appears to be Trigeminy. Patient reports that his CP improved after the cardioversion. His Commercial Maintenance Technician is Jesus Dawkins at [facility]. He just recently moved to the [facility]. He states he has been compliant on his medications but his diet could be better. His past away in December, so he has just been living alone. He reports he only drinks 1 regular sized cocktail each night. He used to smoke 1 ppd x about 25 years. He quit after his CABG. Hospital Course 65 yo M with history of CAD s/p distant CABGx4, Hypertension, and Hyperlipidemia who presents for right sided CP radiating to his right neck. Found to be in Atrial Flutter with rate of 150s in ED, then cardioverted and came down to rate of 110s with frequent Trigeminy vs Bigeminy. #Acute Chest Pain, POA Likely due to his Atrial Flutter, improved after Cardioversion, but still mildly persistent. Trops neg x1, EKG without obvious acute ST changes Dr. Arenas, preparation center coordinator, is consulted on the patient. Gave 1 dose of Metoprolol for this afternoon, then hold BB and place on NPO status for anticipated ECHO and ETT tomorrow. Placed on Tele for CV monitoring. TSH/T4 WNL IV NS 80mls/hr given while NPO. #CAD s/p CABG, POA Lipid panel showed high trigs Continue Home medications when appropriate: Lisinopril and Metoprolol Metoprolol was doubled at Cardiology's recs #Leukocytosis, acute, POA WBC of 16.3 on admit with normal diff. Patient afebrile and lung exam was benign , although patient reports having a URI recently. Possibly stress reaction, continue to monitor. Likely stress reaction #Hypertension, POA Continue Home medications when appropriate: Lisinopril and Metoprolol #Hyperlipidemia, POA Patient already on high intensity statin Continue Atorvastatin when appropriate #Pre-diabetes, POA Patient reports history of pre-diabetes Will check HgbA1c for evaluation Insulin Lispro Low Correctional Scale initiated A1c 6.9 #GERD, POA Secondary to report of hiatal hernia Maalox prn heartburn #BMI 34.0 Recommend search engine marketing specialist consult Exam Vital Signs (Last) Date Time Temp Pulse Resp B/P Pulse Ox O2 Delivery O2 Flow Rate FiO2 04/19/16 14:05 36.7 64 19 158/98 91 Room Air Exam Gen: Obese white male in NAD, A&Ox3, Cooperative HEENT: NC/AT, PERRLA, EOMI, Oropharynx non-erythematous, mucosa pink but mildly dry Neck: Soft, Trachea Midline, CV: RRR with soft systolic murmur No JVD noted Resp: CTAB, normal resp effort Abd: Soft, Obese, mildly distended, mildly tender to palpation in the lower quadrants, no guarding or rebound, no masses palpated. Normoactive BS present MSK: MS grossly intact and equal, no focal weakness Neuro: CN2-12 grossly intact, DTRs +2 and equal, Skin: Warm, Dry, Intact, no Rashes noted Extremities: No clubbing, Cyanosis, or edema noted. Psych: Appropriate mood and affect, linear speech process. Test 04/18/16 16:02 04/18/16 19:50 04/19/16 07:10 04/19/16 12:24 Prothrombin Time 10.0sec (8.1-12.5) Prothromb Time International Ratio 0.94ratio D-Dimer < 0.50mg/L FEU (<0.50) Hemoglobin A1c 6.9% (4.8-5.6) Procalcitonin 0.08ng/mL (0.00-0.08) Thyroid Stimulating Hormone (TSH) 4.680uIU/mL (0.450-4.500) Free Thyroxine 0.98ng/dL (0.82-1.77) Troponin T < 0.010ug/L (0.0-0.011) White Blood Count 8.9th/mm3 (3.8-10.1) Red Blood Count 4.51mil/mm3 (4.40-5.80) Hemoglobin 14.6g/dL (13.8-17.2) Hematocrit 43.4% (41.0-50.0) Mean Corpuscular Volume 96.2fL (81-100) Mean Corpuscular Hemoglobin 32.4pg (27.0-35.0) Mean Corpuscular Hemoglobin Concent 33.6% (32.0-37.0) Red Cell Distribution Width 13.1% (12.3-15.4) Platelet Count 125bil/L (150-400) Neutrophils (%) (Auto) 50.8% (40-74) Lymphocytes (%) (Auto) 34.4% (14-46) Monocytes (%) (Auto) 11.9% (4-12) Eosinophils (%) (Auto) 2.1% (0-5) Basophils (%) (Auto) 0.4% (0-3) Sodium Level 139mEq/L (134-144) Potassium Level 3.9mEq/L (3.5-5.2) Chloride Level 101mEq/L (97-108) Carbon Dioxide Level 22mmol/L (18-29) Blood Urea Nitrogen 14mg/dL (8-27) Creatinine 0.73mg/dL (0.76-1.27) Estimat Glomerular Filtration Rate 114mL/min (>59) Glucose Level 145mg/dL (60-99) Calcium Level 8.6mg/dL (8.5-10.1) Magnesium Level 2.1mg/dL (1.6-2.6) Total Bilirubin 1.3mg/dL (0.0-1.2) Aspartate Amino Transf (AST/SGOT) 30U/L (0-50) Alanine Aminotransferase (ALT/SGPT) 45U/L (0-44) Alkaline Phosphatase 65U/L (25-160) Total Protein 5.7g/dL (6.4-8.4) Albumin 3.9g/dL (3.4-5.0) Triglycerides Level 199mg/dL (0-149) Cholesterol Level 138mg/dL (100-199) LDL Cholesterol, Calculated 55.200mg/dL (0-99) VLDL Cholesterol 39.800mg/dL HDL Cholesterol 43mg/dL (>39) Cholesterol/HDL Ratio 3.21 (0.0-4.4) Activated Partial Thromboplast Time 28.9sec (22.8-33.0) Discharge Medications Discharge Medications Aspirin Chew (Aspirin Chew) 81 Mg Chew 81 MG PO DAILY (Reported) Atorvastatin Calcium (Atorvastatin Calcium) 40 Mg Tablet 40 MG PO HS (Reported) Esomeprazole Magnesium (Esomeprazole Magnesium) 20 Mg Capsule.dr 20 MG PO QAM ( Reported) Ezetimibe (Zetia) 10 Mg Tablet 10 MG PO HS (Reported) Lisinopril (Lisinopril) 40 Mg Tablet 40 MG PO HS (Reported) Magnesium Oxide (Magnesium) 400 Mg Tablet 400 MG PO DAILY (Reported) Metoprolol Succinate ER (Metoprolol Succinate ER) 50 Mg Tab.er.24h 100 MG PO HS Prescribed by: EMELIA JACK DO Rivaroxaban (Xarelto) 20 Mg Tablet 20 MG PO DAILY Prescribed by: EMELIA JACK DO As needed Nitroglycerin SL (Nitrostat) 0.4 Mg Tab.subl 0.4 MG SL Q5MIN PRN PRN For Chest Pain (Reported) Additional med instructions Please take your medications as instructed. We will start you on a blood thinner called Xarelto. Please take that daily as instructed. Followup Plan Disposition: Home Discharge Diet: Heart Healthy Discharge Activity: Limited until seen by PCP (Take it easy) Patient Instructions Please take your medications as instructed. Please follow up with Dr. Cooper [facility], 2016 at 10:00 AM. Please arrive 10 minutes early to fill out paperwork. Address: [address] [place] [id number] Please follow up with your Commercial Maintenance Technician within 1-2 weeks also. Follow-up Provider: Maury Jack DO Follow-up with PCP in: 2 weeks Time spent 40 minutes Attending Statement I have seen and evaluated patient at bedside in addition to directly supervising care provided by resident physician. I agree with above documentation. copies to: Maury Jack DO Maury Jack DO Apr 19, 2016 19:25 Milton Peña DO Apr 20, 2016 15:52
[2016-04-19] MEDS ORDERED: MeTOProlol XL 50 mg ER24 Tablet PO SCH (21:00)
== END 2016-04-19 15:45 | disposition home or self-care (01) | DRG 310 ==
LOC: SED 15:45 → EDBD 15:45 → OBSVTOIN 18:15 → MPC 18:15
PROVIDERS: ADMIT Internal Medicine; ATTEND Internal Medicine
DX: I48.92 Unspecified atrial flutter (principal); Z95.1 Presence of aortocoronary bypass graft; Z79.82 Long term (current) use of aspirin; I25.10 Atherosclerotic heart disease of native coronary artery without angina pectoris; I10 Essential (primary) hypertension; E78.5 Hyperlipidemia, unspecified; E66.09 Other obesity due to excess calories; E11.9 Type 2 diabetes mellitus without complications; Z68.34 Body mass index [BMI] 34.0-34.9, adult

== ENCOUNTER → 2016-09-10 | Day surgery (SDC) | payer MEDICARE ==
[~2016-09-10] VITALS: Ht 182.9 cm; Wt 111.1 kg
[~2016-09-10] MED LIST: ASPI-973 PO; ATOR20TA PO; CETI5TAB28 PO; COLC0.6T52 PO; EZET10TA PO; LACT1CAP73 PO; LISI40TA PO; MAGN400C PO; METF500T4 PO; METO-272 PO; NITR0.4T6 SL; Phenylephrine 10,000 mCg/mL Inj ONE; Propofol 10,000 mCg/mL 20 mL Inj ONE; RIVA20TA PO; ROSU40TA20 PO; ZYL100 PO; fentaNYL-PF 50 mCg/mL 2 mL Inj ONE
[2016-09-10 10:18] VITALS: BP 119/76; PULSE 90; RESP 16; O2SAT 100
[2016-09-10] MEDS: Lactated Ringer's 1,000 ML IV SCH ×4 (10:30→12:08)
--- NOTE | 2016-09-10 11:04 | PCM.HPANE ---
Patient Data Date of Service: Sep 10, 2016 (3105) Surgeon Admitting Provider: Attending Provider:Murali Balbuena MD Primary Care Physician:Joe Jeffery MD Other Provider:Eren Gale Anesthesia Reason for Visit Colon Cancer Screening/Gerd Ht/WT & BMI Height (Feet): 6 Height (Inches): 0 Weight (Kilograms): 111.13 Body Mass Index 33.00 Allergies Coded Allergies: amoxicillin (Verified Allergy, Severe, Rash,Itching,, 04/18/16) naproxen (Verified Allergy, Severe, Rash,Itching,, 04/18/16) sulfamethoxazole (Verified Allergy, Severe, Rash,Itching,, 04/18/16) trimethoprim (Verified Allergy, Severe, Rash,Itching,, 04/18/16) Past Anesthesia History Anesthesia History: Denies:: Abnormal Airway, Anesthesia Reactions, Difficult Intubation, Fam Anesthesia Reaction, Fam Malignant Hypertherm, Malignant Hyperthermia Diabetes History Hx Diabetes?: Yes Current Bedside Blood Glucose: 98 MRSA MRSA: No Medications Blood Thinner: Aspirin, Xarelto Last Dose Blood Thinner: Sep 07, 2016 Home Meds Incl Beta Eliane: Yes Date Beta Eliane Taken: Sep 09, 2016 Time Beta Eliane Taken: 1900 Reported Medications Ezetimibe (Zetia)10 Mg Xozsfy98 Mg PO DAILY 30 Days Ref 0 09/06/16 Rivaroxaban (Xarelto)20 Mg Kczoxp85 Mg PO DAILY 09/06/16 Rosuvastatin Calcium 40 Mg Rwtczu16 Mg PO DAILY 09/06/16 Nitroglycerin SL 0.4 Mg Tab.subl0.4 Mg SL 09/06/16 Metoprolol Succinate ER 50 Mg Tab.er.24h50 Mg PO DAILY Ref 0 09/06/16 Metformin 500 Mg Jnones898 Mg PO BID Ref 0 09/06/16 Magnesium Oxide (Magnesium)400 Mg Ysoltfo697 Mg PO DAILY 09/06/16 Lisinopril 40 Mg Nlucap34 Mg PO DAILY 30 Days Ref 0 09/06/16 Lactobacillus Combo No.11 (Probiotic)1 Each Cap.sprink1 Each PO DAILY 09/06/16 Colchicine (Colcrys)0.6 Mg Tablet0.6 Mg PO PRN For GI Cramps 09/06/16 Cetirizine 5 Mg Lnakco75 Mg PO HS Ref 0 09/06/16 Atorvastatin (Lipitor)20 Mg Dlbazu13 Mg PO DAILY Ref 0 09/06/16 Aspirin 81 Mg Qfedfu35 Mg PO DAILY Ref 0 09/06/16 Allopurinol 100 Mg Azamwd669 Mg PO DAILY Ref 0 09/06/16 Discontinued Reported Medications Magnesium Oxide (Magnesium)400 Mg Clvons648 Mg PO DAILY 04/18/16 Esomeprazole Magnesium 20 Mg Capsule.dr20 Mg PO QAM 04/18/16 Aspirin Chew 81 Mg Chew81 Mg PO DAILY Ref 0 04/18/16 Nitroglycerin SL (Nitrostat)0.4 Mg Tab.subl0.4 Mg SL Q5MIN PRN For Chest Pain # 25 04/18/16 Ezetimibe (Zetia)10 Mg Ljfsbz72 Mg PO HS #90 04/18/16 Atorvastatin Calcium 40 Mg Mrjnym14 Mg PO HS #90 04/18/16 Lisinopril 40 Mg Ehhyvu77 Mg PO HS #90 04/18/16 Discontinued Scripts Rivaroxaban (Xarelto)20 Mg Rnqoyp05 Mg PO DAILY #30 TABLET Prov:Maury Jack DO 04/19/16 Metoprolol Succinate ER 50 Mg Tab.er.82a153 Mg PO HS #90 Prov:Maury Jack DO 04/19/16 History History of ENT Problems?: No HEENT History: Denies:: Abnormal Airway Difficult Intubation Dysphagia Hearing Problem Denture Type: None Teeth Condition: Within Normal Limits Hx of Heart Problems?: Yes Cardiovascular History: Positive for:: Atrial Fibrillation (COMES AND GOES) Cardiac Surgery (CABG) Hypertension Denies:: AICD Chest Pain Congestive Heart Failure Edema Heart Murmur Irregular Heartbeat Pacemaker Valvular Heart Disease Hx of Respiratory Problem?: No Respiratory History: Denies:: Asthma COPD Cough Hemoptysis Pneumonia Tuberculosis Hx Neurologic Problems?: No Neurological History: Denies:: CVA Hx of GI Problems?: Yes Hx of Problems?: No Male Hx: Positive for:: Prostate Problems (enlarged) Denies:: Scrotal Mass Testicular Surgery Hx Musculoskeletal Problems?: Yes Musculoskeletal History: Positive for:: Back Injury (2x bulging disks) Denies:: Fibromyalgia Joint Replacement Hx of Psycho/Social Problems?: Yes Psycho Social History: Positive for:: Anxiety Denies:: Hx Depression Hx Surgeries?: Yes (QUADROUPLE BYPASS, BACK SX, TONSILLECTOMY ) Hx Any Other Health Problems?: Yes Other History: Positive for:: Hospitalization (cabg) History Blood Transfusions: Denies:: Blood Transfusions Hx Diabetes: YesBedside Blood Glucose: 98 Hx Alcohol Use: NoHx Substance Use: No Smoking Status: Former Smoker Stop/Bang Treated for Sleep Apnea?: Yes (WAITING FOR SLEEP STUDY RESULTS FROM 3 WEEKS AGO ) Do You Have a CPAP Machine?: Yes S-Snoring: Do You Snore Loudly: Yes T-Tired: feel tired, fatigued: Yes O-Obsered: Observed not breath: Yes P-Blood Pressure: treated: Yes B- Body Mass Index > 35 kg/m2: Yes A- Age over 50: Yes N- Neck Large Circumference: Yes G- Gender Male: Yes JOSSELYN Total Score: 8 Risk Assessment Category Category 1A: Patient has history of documented sleep apnea, and HAS NOT received any narcotic, sedative or anesthesia administration during this stay. Category 1B: Patient has history of documented sleep apnea, and HAS received any narcotic , sedative or anesthesia administration during this stay Category 2: Patient has SUSPECTED Obstructive Sleep Apnea, and HAS received any narcotic , sedative or anesthesia administration during this stay. Category 3: Patient has SUSPECTED Obstructive Sleep Apnea and HAS NOT received narcotic, sedative or anesthesia administration during this stay. Category 4: Outpatient in Procedural Areas with known sleep apnea or who screen positive for High Risk via the STOP/BANG questionnaire. Exam Exam Vital Signs Vital Signs Date Time Temp Pulse Resp B/P Pulse Ox O2 Delivery O2 Flow Rate FiO2 09/10/16 10:18 90 16 119/76 100 Room Air General Appearance: Alert, Oriented X3, Cooperative, No Acute Distress HEENT/AIRWAY: MP 3, Mouth Opening (small) Lungs: Clear to Auscultation Heart: Exam Unremarkable Meds/Labs/Diagnostics Admission Meds Current Medications Lactated Ringer's (Lr) 1,000 ml @ 120 mls/hr Q8H20M IV Last administered on t 10:30; Start 09/10/16 at 05:00; Stop 09/10/16 at 13:19 Bedside Blood Glucose: 98 Plan Impression Patient chart reviewed, patient interviewed and anesthestic plan with risks, benefits, and alternatives discussed, and informed consent obtained. ASA Physical Status: ASA2 Mod Systemic Disease Anesthetic Plan: MAC Bene/Risks/Altern/Consents: Yes HP Complete Prior to Induction: Yes Jose Dwyer MD Sep 10, 2016 11:04
[2016-09-10 12:09] VITALS: BP 110/70; PULSE 73; RESP 16; O2SAT 97
[2016-09-10 12:19] VITALS: BP 106/68; PULSE 61; RESP 16; O2SAT 96
[2016-09-10 12:29] VITALS: BP 124/69; PULSE 68; RESP 16; O2SAT 97
--- NOTE | 2016-09-10 14:33 | ENDO ---
[address] [address] ENDOSCOPY PROCEDURE PATIENT: KELIN KENNY : 1950 MR#: [id number] ADMIT: 09/10/2016 JOB ID: [id number] DATE OF SERVICE: 09/10/2016 PRIMARY PROVIDER: Joe Jeffery MD. PROCEDURE: 1. Esophagogastroduodenoscopy with biopsy. 2. Colonoscopy with hot snare polypectomy, cold snare polypectomy and cold forceps polypectomy. INDICATIONS: A 66-year-old male with a family history of Freire's and esophageal cancer. He has a longstanding personal history of reflux. He reports for Freire's screening. He has never had colon cancer screening with colonoscopy. EQUIPMENT: GIF-H180J and a PCF-H180AL. SEDATION: Monitored anesthesia as provided by Dr. Jose Dwyer. COMPLICATIONS: None identified. BOWEL PREPARATION: Fair, adequate exam. PROCEDURE INFORMATION: After the risks and benefits were explained, written and verbal informed consent was obtained. The patient was brought into the endoscopy suite and placed into the left lateral decubitus position. Sedation was achieved as above. The scope was introduced through the mouth, through the bite block, and advanced to the second portion of the duodenum. The scope was slowly withdrawn to carefully examine the mucosa for any defects or lesions. Retroflexed views were accomplished in the stomach. The stomach was decompressed. The scope removed from the patient who tolerated the procedure well. The patient was turned around and digital rectal examination accomplished. Mild to moderate internal hemorrhoids. No other pathology appreciated. The scope was introduced into the rectum and advanced to the cecum as identified by the appendiceal orifice and ileocecal valve. The scope was slowly withdrawn to carefully examine the mucosa for any defects or lesions, and 360-degree views were accomplished at the level of the dentate line. The colon was decompressed. The scope removed from the patient who tolerated the procedure well. FINDINGS: 1. Duodenum: No pathology identified from the bulb through the second portion. 2. Stomach: No ulcers. No mass lesions. No outlet obstruction. The patient had a diffuse macronodular gastropathy seen throughout and random biopsies were taken for exclusion of helicobacter or any other underlying histopathology. Retroflexed views of the LES were otherwise unremarkable. 3. Esophagus: The squamocolumnar junction did appear to extend into the tubular esophagus ever so slightly. This appeared to be consistent with short-segment Freire's (i.e. C0.5 M1). Four-quadrant biopsies were acquired from the area that appeared suggestive of Freire's. I did not appreciate any nodularity. No ulceration. No active inflammation. Subtle sliding hiatal hernia was evident. The remainder of the esophagus appeared unremarkable apart from a benign inlet patch. 4. Colon: There were some scattered diverticula in both the right and left colon. There were four polyps seen and removed from throughout. These were all quite small. Two [address] of cold forceps, one by cold snare and the largest, which was perhaps about 6-7 mm, came by way of hot snare. These, for the most part, appeared probably hyperplastic. No other significant colonic pathology appreciated. 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 2. Hiatal hernia. 3. Gastropathy. 4. Colon polyps. 5. Diverticulosis. 6. Hemorrhoids. RECOMMENDATIONS: 1. Await histopathology. 2. If Freire's is confirmed and is nondysplastic, then repeat EGD will likely be pursued for 9-12 months' time. 3. Continue antireflux protocol with Nexium. 4. If there are any adenomatous features in the colon polyps, then I would recommend a repeat colonoscopy in three years. If all of these are returned with hyperplastic features only, then it would be reasonable to delay repeat exam in 10 years unless symptoms arise earlier.
--- NOTE | 2016-09-12 16:22 | PATH ---
SURGICAL PATHOLOGY Attending Physician:Nathalie Whyte CASE STATUS: Signed Out PATIENT NAME: KELIN KENNY PID: [id number] : 1950 DATE COLLECTED:09/10/2016 22:33 SPECIMEN: 1: Gastric, Biopsy 2: Esophagus, Biopsy 3: Colon, Polyp CLINICAL HISTORY: 1). GASTRIC BIOPSY, RULE OUT H.PYLORI 2). DISTAL ESOPHAGUS, RULE OUT NOBLE'S 3). COLON POLYPS X4 FINAL DIAGNOSIS: 1. Gastric Biopsy: Portions of gastric body-type mucosa with no diagnostic abnormality. No Helicobacter pylori organisms identified by H&E stain and immunohistochemistry studies Negative for intestinal metaplasia, dysplasia, and malignancy. 2. Distal Esophagus, Biopsy: Portions of squamocolumnar junctional mucosa with intestinal metaplasia, consistent with Noble's metaplasia, in the appropriate clinical and imaging context. Some foci of intestinal metaplasia underlie squamous mucosa. Negative for dysplasia and malignancy. 3. Colon Polyps, Biopsies: Portions of tubular adenoma x2; negative for high-grade dysplasia. Hyperplastic polyp x1. Superficial portion of colorectal mucosa x1 with a prominent lymphoid aggregate and no diagnostic abnormality. ICD10: K22.7 GROSS DESCRIPTION: The specimen is received in three formalin filled containers labeled with the patient's name. 1). The specimen is labeled "gastric" and consists of a 0.3 x 0.2 x 0.2 CM portion of tissue which is entirely submitted in cassette 1A. 2). The specimen is labeled "distal esophagus" and consists of 4 portions of tissue which aggregate to 0.3 x 0.3 x 0.3 CM. The specimen is entirely submitted in cassette 2A. 3). The specimen is labeled "colon polyps" and consists of 4 portions of tissue which aggregate to 0.3 x 0.3 x 0.3 CM. The specimen is entirely submitted in cassette 3A. 09/10/2016DC ICD-9 CODES: CPT CODES: 1: 58656, 57576 2: 84311 3: 19723 Electronically Signed Out Pam Witt MD [facility] [address], [place] [address] Technical component performed at [facility], [facility] [address], [place], [address]
== END | disposition home or self-care (01) ==
LOC: END 00:22
PROVIDERS: ATTEND Internal Medicine Gastroenterology
DX: Z12.11 Encounter for screening for malignant neoplasm of colon (principal); D12.6 Benign neoplasm of colon, unspecified; K57.30 Diverticulosis of large intestine without perforation or abscess without bleeding; K64.8 Other hemorrhoids; K22.70 Barrett's esophagus without dysplasia; K44.9 Diaphragmatic hernia without obstruction or gangrene; K31.9 Disease of stomach and duodenum, unspecified; K21.9 Gastro-esophageal reflux disease without esophagitis; I10 Essential (primary) hypertension; E11.9 Type 2 diabetes mellitus without complications; E78.5 Hyperlipidemia, unspecified; G47.33 Obstructive sleep apnea (adult) (pediatric); I48.0 Paroxysmal atrial fibrillation; I25.10 Atherosclerotic heart disease of native coronary artery without angina pectoris; Z95.1 Presence of aortocoronary bypass graft; Z79.01 Long term (current) use of anticoagulants; Z79.84 Long term (current) use of oral hypoglycemic drugs; Z79.82 Long term (current) use of aspirin
CPT/HCPCS: 43239; 45380; 45385; J2370; J3010; J7120